=== PATIENT | female | born 1990 | race Caucasian/White ===

== ENCOUNTER 2021-10-17 23:13 | Outpatient (CLI) | payer OTHER | END 2021-10-18 02:17 | disposition home or self-care (01) | LOC: GENOP 23:13 | DX: O26.893 Other specified pregnancy related conditions, third trimester (principal); R10.2 Pelvic and perineal pain; Z3A.29 29 weeks gestation of pregnancy | CPT/HCPCS: 59025; 81001; 83518; 96360; 96361; J7120 ==

== ENCOUNTER 2021-12-12 08:43 | Inpatient (IN) | payer BC, OTHER ==
[~2021-12-12] VITALS: Ht 160 cm; Wt 70.8 kg
[2021-12-12 10:01] LABS: HEMOGLOBIN 10.3 gm/dl (12.3-15.3); RED BLOOD COUNT 3.71 M/UL (4.00-5.10); WHITE BLOOD COUNT 12.3 K/UL (4.5-11.0)
[2021-12-12] MEDS ORDERED: DOCUSATE SODIU100 MG PO (15:08)
[2021-12-12] MEDS ORDERED: IBUPROFEN600 MG PO (15:08)
[2021-12-12] MEDS ORDERED: UNISOM25 MG PO (16:20)
[2021-12-13 02:03] LABS: HEMOGLOBIN 9.8 gm/dl (12.3-15.3)
== END 2021-12-13 19:19 | disposition home or self-care (01) | DRG 807 ==
LOC: GENOP 08:43 → OB 09:43
PROVIDERS: ADMIT Obstetrics & Gynecology
PROC: 10E0XZZ Delivery of Products of Conception, External Approach (ICD-10-PCS; principal; 2021-12-12)
PROC: 10907ZC Drainage of Amniotic Fluid, Therapeutic from Products of Conception, Via Natural or Artificial Opening (ICD-10-PCS; 2021-12-12)
PROC: 4A1HXCZ Monitoring of Products of Conception, Cardiac Rate, External Approach (ICD-10-PCS; 2021-12-12)
PROC: 3E0234Z Introduction of Serum, Toxoid and Vaccine into Muscle, Percutaneous Approach (ICD-10-PCS; 2021-12-12)
DX: O42.92 Full-term premature rupture of membranes, unspecified as to length of time between rupture and onset of labor (principal); Z37.0 Single live birth; Z3A.37 37 weeks gestation of pregnancy; Z20.822 Contact with and (suspected) exposure to COVID-19; Z84.1 Family history of disorders of kidney and ureter; Z82.49 Family history of ischemic heart disease and other diseases of the circulatory system; Z80.52 Family history of malignant neoplasm of bladder; O70.0 First degree perineal laceration during delivery; Z23 Encounter for immunization
CPT/HCPCS: 36415; 36600; 81001; 82800; 83518; 85014; 85018; 85025; 90715; J2590; J7120